=== PATIENT | female | born 1960 | race Caucasian/White ===

== ENCOUNTER 2017-05-09 09:02 | Emergency (ER) | payer OTHER ==
[~2017-05-09] VITALS: Ht 177.8 cm; Wt 113.4 kg
--- NOTE | ~2017-05-09 | EKG ---
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: SRINIVASAN : 1960 Requested By: Ceasar Bhatia Order Number: [id number] MD: Marcellus Ruggiero Measurements Intervals [place] Rate: 60 P: 42 FL: 164 QRS: -6 QRSD: 91 T: 14 QT: 424 QTc: 424 Interpretive Statements Sinus rhythm Abnormal R-wave progression, early transition Compared to ECG 08/23/2010 21:59:13 No significant change was found Electronically Signed On 05-09-2017 17:06:17 CDT by Marcellus Ruggiero [email or web address] <ELECTRONICALLY SIGNED> By: Marcellus Ruggiero MD, [facility] 05/09/17 1706 0 0 Marcellus Ruggiero MD, [facility] /EPI
[~2017-05-09 09:02] MED LIST: ADULT LOW DOSE81 MG PO; LEVOXYL112 MCG PO; LEVOXYL25 MCG; LISINOPRIL10 MG PO
[2017-05-09] MEDS ORDERED: COZAAR 25 MG TA25 M1 PO (09:09)
[2017-05-09] MEDS ORDERED: WP THYROID PO (09:09)
[2017-05-09 10:00] LABS: HEMATOCRIT 43.2 % (37.0-47.0); HEMOGLOBIN 14.5 gm/dL (12.0-15.0); MCH 29.7 pg (26.0-34.0); MCHC 33.4 g/dL (28.0-37.0); MCV 88.8 fL (80.0-100.0); RBC 4.87 mil/uL (4.20-5.00); RDW 13.3 % (10.5-14.5); WBC 6.8 thou/uL (4.0-11.0)
[2017-05-09 10:06] LABS: CALCIUM 8.7 mg/dL (8.5-10.1); CREATININE 0.8 mg/dL (0.6-1.0)
[2017-05-09 10:09] LABS: URINE BILIRUBIN NEGATIVE (Negative); URINE BLOOD TRACE (Negative); URINE COLOR YELLOW; URINE GLUCOSE-RANDOM* NEGATIVE (Negative); URINE KETONES NEGATIVE (Negative); URINE LEUKOCYTES-REFLEX NEGATIVE (Negative); URINE PROTEIN (DIPSTICK) NEGATIVE (Negative); URINE SPECIFIC GRAVITY <= 1.005 (1.003-1.035); URINE UROBILINOGEN 0.2 E.U./dl (0.2-1.0)
[2017-05-09 11:42] VITALS: BP 157/76
== END 2017-05-09 11:42 | disposition home or self-care (01) ==
LOC: ER 09:02
PROVIDERS: Emergency Medicine
DX: I10 Essential (primary) hypertension (principal); E89.0 Postprocedural hypothyroidism; F10.99 Alcohol use, unspecified with unspecified alcohol-induced disorder

== ENCOUNTER 2017-05-20 11:16 | Emergency (ER) | payer OTHER ==
[~2017-05-20] VITALS: Ht 177.8 cm; Wt 113.4 kg
[~2017-05-20 11:16] MED LIST changes: +COZAAR 25 MG TA25 M1 PO; +WP THYROID PO
[2017-05-20] MEDS ORDERED: SYNTHROID112 MCG PO (11:23)
[2017-05-20] MEDS ORDERED: IBUPROFEN 600600 M1 PO (13:07)
[2017-05-20] MEDS ORDERED: ULTRAM 50MG TAB50 MG PO (13:07)
[2017-05-20 13:37] VITALS: BP 168/92
== END 2017-05-20 14:07 | disposition home or self-care (01) ==
LOC: ER 11:16
DX: S16.1XXA Strain of muscle, fascia and tendon at neck level, initial encounter (principal); M25.552 Pain in left hip; M25.562 Pain in left knee; M79.7 Fibromyalgia; I10 Essential (primary) hypertension; F10.99 Alcohol use, unspecified with unspecified alcohol-induced disorder; Z90.721 Acquired absence of ovaries, unilateral; V89.2XXA Person injured in unspecified motor-vehicle accident, traffic, initial encounter; Y93.I9 Activity, other involving external motion; Y92.89 Other specified places as the place of occurrence of the external cause; Y99.8 Other external cause status

== ENCOUNTER 2018-02-07 13:55 | Emergency (ER) | payer OTHER ==
[~2018-02-07] VITALS: Ht 177.8 cm; Wt 113.4 kg
[~2018-02-07 13:55] MED LIST changes: +IBUPROFEN 600600 M1 PO; +SYNTHROID112 MCG PO; +ULTRAM 50MG TAB50 MG PO
[2018-02-07 14:07] VITALS: BP 165/92
[2018-02-07] MEDS ORDERED: FLEXERIL PO (15:42)
== END 2018-02-07 16:10 | disposition home or self-care (01) ==
LOC: ER 13:55
DX: M54.2 Cervicalgia (principal); R51 Headache; M25.511 Pain in right shoulder; I10 Essential (primary) hypertension; M79.7 Fibromyalgia; E89.0 Postprocedural hypothyroidism; V89.0XXA Person injured in unspecified motor-vehicle accident, nontraffic, initial encounter; Y93.89 Activity, other specified; Y92.89 Other specified places as the place of occurrence of the external cause; Y99.8 Other external cause status

== ENCOUNTER 2021-01-15 12:08 | Emergency (ER) | payer OTHER ==
[~2021-01-15] VITALS: Ht 177.8 cm; Wt 124.7 kg
[~2021-01-15 12:08] MED LIST changes: +FLEXERIL PO
[2021-01-15 13:11] LABS: HEMATOCRIT 41.5 % (37.0-47.0); HEMOGLOBIN 14.2 gm/dL (12.0-15.0); MCH 29.8 pg (26.0-34.0); MCHC 34.2 g/dL (28.0-37.0); MCV 87.3 fL (80.0-100.0); RBC 4.76 mil/uL (4.20-5.00); RDW 14.1 % (10.5-14.5); WBC 7.3 thou/uL (4.0-11.0)
[2021-01-15] MEDS ORDERED: LOSARTAN-HCTZ1 EAC3 PO (13:12)
[2021-01-15] MEDS ORDERED: HYDROCHLOROTHIA25 M1 PO (13:13)
[2021-01-15] MEDS ORDERED: PROGESTERO50 MG/1 M3 PO (13:14)
[2021-01-15] MEDS ORDERED: NP THYROID 120120 MG PO (13:15)
[2021-01-15 13:21] LABS: ANION GAP 10 mmol/L (7-16); BUN 12 mg/dL (7-18); CALCIUM 8.7 mg/dL (8.5-10.1); CHLORIDE 104 mmol/L (98-107); CO2 26 mmol/L (21-32); CREATININE 0.9 mg/dL (0.6-1.0); GLUCOSE 84 mg/dL (74-106); SODIUM 140 mmol/L (136-145)
[2021-01-15 13:31] LABS: ALBUMIN 3.6 g/dL (3.4-5.0); SGOT 24 U/L (15-37); SGPT 39 U/L (14-59); TOTAL PROTEIN 6.9 g/dL (6.4-8.2); TROPONIN-I <0.06 ng/mL (<0.06)
[2021-01-15] MEDS ORDERED: CLONIDINE HCL0.1 MG PO (15:21)
--- NOTE | 2021-01-15 15:25 | EKG ---
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
[2021-01-15 15:26] VITALS: BP 179/106
== END 2021-01-15 15:26 | disposition home or self-care (01) ==
LOC: ER 12:08
PROVIDERS: Nurse Practitioner Family
DX: I10 Essential (primary) hypertension (principal); M79.7 Fibromyalgia; Z90.89 Acquired absence of other organs; Z98.82 Breast implant status; Z90.721 Acquired absence of ovaries, unilateral; Z79.899 Other long term (current) drug therapy